=== PATIENT | female | born 1950 | race Caucasian/White ===

== ENCOUNTER → 2018-07-24 | Outpatient (CLI) | payer MEDICARE ==
--- NOTE | 2018-07-29 13:30 | MM ---
Reason for exam: screening (asymptomatic). Last mammogram was performed 1 year and 7 months ago. History: Patient is postmenopausal and is nulliparous. Family history of breast cancer in sister. Physical Findings: A clinical breast exam by your physician is recommended on an annual basis and results should be correlated with mammographic findings. MG 3D Screening Mammo W/Cad Bilateral CC and MLO view(s) were taken. Prior study comparison: December 25, 2016, bilateral MG 3d screening mammo w/cad. February 25, 2012, bilateral digital screening mammo w/CAD. There are scattered fibroglandular densities. Left pacemaker noted. Right intramammary lymph noded noted. ASSESSMENT: Benign, BI-RAD 2 RECOMMENDATION: Routine screening mammogram of both breasts in 1 year.
== END | disposition home or self-care (01) ==
LOC: RADMAMWWP 08:37
PROVIDERS: ATTEND Family Medicine
DX: Z12.31 Encounter for screening mammogram for malignant neoplasm of breast (principal)
CPT/HCPCS: 77063; 77067

== ENCOUNTER 2018-08-28 08:52 | Day surgery (SDC) | payer MEDICARE ==
[2018-08-25 09:03] VITALS: BMI 37.2
[~2018-08-28 08:52] MED LIST: SODIUM CHLORIDE 0.9% 1,000 ML IV SCH
[2018-08-28] MEDS ORDERED: PROPOFOL 10 MG/ML 20 ML VIAL IV ONE (10:24)
[2018-08-28] MEDS ORDERED: MIDAZOLAM 2 MG/2 ML VIAL ONE (10:24)
[2018-08-28] MEDS ORDERED: LIDOCAINE 1% INJ 10MG/ML (20 ML MDV) ONE (10:24)
[2018-08-28] MEDS ORDERED: BENZOCAINE SPRAY 1 CAN MUCOUS MEM ONE (10:25)
[2018-08-28 10:36] VITALS: TEMP 98
[2018-08-28] MEDS ORDERED: SODIUM CHLORIDE 0.9% 1,000 ML IV SCH (11:00)
[2018-08-28 11:04] VITALS: RESP 16
--- NOTE | 2018-08-28 11:14 | ECHOT ---
TRANSESOPHAGEAL ECHOCARDIOGRAM INDICATION: Evaluation of left atrial appendage. PROCEDURE: After explaining the procedure to the patient, its risks and the complications, blood pressure, heart rate, O2 saturation were monitored. The throat was sprayed with sprayed with Cetacaine. She received sedation per anesthesia department. The probe was introduced esophagus without difficulty. Images were obtained. Following that, the probe was removed. There was no immediate complication. FINDINGS: Left atrial size is mildly dilated. Left atrial appendage is normal. Left ventricular size is normal. There is the ejection fraction 50% to 55% The aortic valve is a tricuspid valve calcified with mild reduced opening. The mitral valve revealed mitral annuloplasty with mild thickening of the mitral valve leaflets. Tricuspid valve is normal. Pulmonic valve is normal. Descending thoracic aorta appears to be normal. Contrast bubble study revealed no shunting across the interatrial septum. Pacemaker wire was noted in the right ventricle. Doppler pulse wave and color Doppler obtained and revealed mild to moderate eccentric mitral regurgitation with mild to moderate tricuspid regurgitation and mild aortic regurgitation. There was no shunting by color Doppler study. CONCLUSION: 1. Dilated left atrium with normal appearance of left atrial appendage. 2. Normal left ventricular size with ejection fraction 50% to 55%. 3. Evidence of mitral valve annuloplasty with mild to moderate eccentric mitral regurgitation. 4. Mild to moderate tricuspid regurgitation with no evidence of pulmonary hypertension. 5. Mild aortic regurgitation with a calcified aortic valve with mild reduction in the opening. 6. A wire was noted in the right ventricle. 7. No pericardial effusion. MMODL / IJN: [id number] /
[2018-08-28 12:56] VITALS: BP 115/63; PULSE 62
--- NOTE | 2018-08-28 13:29 | CE ---
CARDIAC ELECTROPHYSIOLOGY REPORT CARDIOVERSION PROCEDURE NOTE: INDICATION: Atrial fibrillation. PROCEDURE: After explaining the procedure to the patient as well as risks and the complications after obtaining sedated state and performing transesophageal echocardiogram, a synchronized biphasic cardioversion using 200 joules was performed with buddhism of normal sinus rhythm. There was no immediate complication. JULIETA / ANILA: [id number] /
[2018-08-28] MEDS ORDERED: GABAPENTIN 100 MG CAP PO SCH (21:00)
[2018-08-28] MEDS ORDERED: ATORVASTATIN 20 MG TAB PO SCH (21:00)
[2018-08-28] MEDS ORDERED: METOPROLOL TARTRATE 25 MG TAB PO SCH (21:00)
[2018-08-29] MEDS ORDERED: RIVAROXABAN 15 MG TAB PO SCH (09:00)
[2018-08-29] MEDS ORDERED: TRIAMTERENE-HCTZ 37.5-25MG 1 EACH CAP PO SCH (09:00)
[2018-08-29] MEDS ORDERED: PARoxetine 20 MG TAB PO SCH (09:00)
== END 2018-08-28 12:40 | disposition home or self-care (01) ==
LOC: CATHCVL 08:52
PROVIDERS: ATTEND Internal Medicine Interventional Cardiology
DX: I48.1 Persistent atrial fibrillation (principal); I08.3 Combined rheumatic disorders of mitral, aortic and tricuspid valves; I10 Essential (primary) hypertension; E78.5 Hyperlipidemia, unspecified; G47.33 Obstructive sleep apnea (adult) (pediatric); I69.398 Other sequelae of cerebral infarction; M21.371 Foot drop, right foot; K21.9 Gastro-esophageal reflux disease without esophagitis; Z79.01 Long term (current) use of anticoagulants; Z88.0 Allergy status to penicillin; Z91.041 Radiographic dye allergy status; Z79.899 Other long term (current) drug therapy; Z87.442 Personal history of urinary calculi
CPT/HCPCS: 93312; 93320; 93325; 92960; J2250; J2001; J2704; 93005

== ENCOUNTER → 2018-09-24 | Outpatient (CLI) | payer MEDICARE ==
--- NOTE | 2018-09-24 14:28 | CONS ---
CONSULTATION DATE OF SERVICE: 09/24/2018 A 68-year-old lady who has been [facility] for obstructive sleep apnea-hypopnea syndrome. HISTORY OF PRESENT ILLNESS/SLEEP-WAKE EVALUATION: Patient has history of obstructive sleep apnea diagnosed about 20 years ago. Patient was on treatment with CPAP, but then around 5 years ago, she stopped using CPAP at that time, she lost some weight. Presently, her sleep schedule from 10:30 p.m. until 7 - 8 am. She has loud snoring during the sleep. She wakes up from sleep 2 times. She has awakenings from sleep with dry mouth, palpitations, heartburn, grinding teeth. In the morning, she wakes up tired, has difficulties to pay attention, falling asleep during the day. Coffeen Sleepiness Scale is 4. Usually, no problems with falling asleep. No TV in bedroom. Sometimes will fall asleep. She may see some kind of hallucinations of bugs. Otherwise, no history of sleep paralysis or cataplexy. PAST MEDICAL HISTORY: Positive for hypertension, stroke in 2014, TIA in 2017, kidney stones, mild depression. PAST SURGICAL HISTORY: Mitral valve repair 2014, permanent pacemaker insertion 2015, lap band surgery, partial hysterectomy. MEDICATIONS: Gabapentin, atorvastatin, metoprolol, triamterene, paroxetine, Xarelto. SOCIAL HISTORY: The patient quit smoking about 50 years ago. Alcohol consumption occasional. FAMILY HISTORY: Hypertension, breast CA. REVIEW OF SYSTEMS: Multiple awakenings from sleep, snoring, sometimes tiredness and sleepiness during the day. PHYSICAL EXAM: lady without distress. BP 122/84, HR 59, RR 20, height 5 foot 2 inches, weight 217 pounds. Body mass index 39.4, temperature 97.4, oxygen saturation at room air 98%. Oropharynx extremely low position of soft palate. Mallampati 4. Neck is 13- 1/2 inches in circumference. HEART: Soft systolic murmur on the upper part of the heart. ABDOMEN; Slightly obese. PHYSICAL EXAMINATION: GENERAL A pleasant patient without any distress. VITAL SIGNS BP@@ , HR@@ , RR@@, height @@ , weight @@ , BMI @@, temperature @@ , oxygen saturation at room air @@%. HEENT PERRLA, EOMI, evaluation of oropharynx showed tongue protrudes midline. Neck Supple, no JVD. Thyroid is not palpable. LUNGS Clear to percussion and to auscultation. Good air exchange. No wheezing or rhonchi. HEART S1, S2 regular. No murmurs, gallops, or rubs. ABDOMEN Slightly obese. EXTREMITIES No clubbing or cyanosis. 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 Cranial nerves 2 to 7 intact. There is no fasciculation or atrophy. noted. No focal deficits observed. IMPRESSION: 1. Snoring, multiple awakenings from sleep, extremely low position of soft palate, episodes of sleepiness during the day. 2. History of obstructive sleep apnea in the past. Obstructive sleep apnea-hypopnea syndrome. 3. Obesity, body mass index 39.4. 4. Hypertension. 5. Hyperlipidemia. 6. History of stroke in 2014. 7. History of transient ischemic attack in 2017. 8. Status post mitral valve repair in 2014 with the date about recent leaking from the wall according to patient. 9. Status post permanent pacemaker insertion 2015. 10.Status post total hysterectomy. 11.Status post lap band surgery. 12.History of depression. PLAN: 1. Polysomnography for evaluation of patient's breathing during sleep. 2. CPAP/BiPAP titration if sleep study confirms obstructive sleep apnea-hypopnea syndrome. 3. Preferable position during sleep on the side. 4. No driving if patient feels any sleepiness. 5. I will see patient for follow up visit to explain results of testing and following plan. Thank you very much for referring this patient for consultation. Sincerely, Nabil Koo MD, PhD, FAASM Diplomat of [employer] [employer] [employer] Machine [employer] Operator of [facility] [place] MMODL / JANISN: [id number] /
== END | disposition home or self-care (01) ==
LOC: SLEEP 11:46
PROVIDERS: ATTEND Internal Medicine
DX: G47.33 Obstructive sleep apnea (adult) (pediatric) (principal); E66.9 Obesity, unspecified; I10 Essential (primary) hypertension; E78.5 Hyperlipidemia, unspecified; Z68.39 Body mass index [BMI] 39.0-39.9, adult; Z87.891 Personal history of nicotine dependence; Z86.73 Personal history of transient ischemic attack (TIA), and cerebral infarction without residual deficits; Z86.59 Personal history of other mental and behavioral disorders; Z95.0 Presence of cardiac pacemaker; Z98.84 Bariatric surgery status; Z90.710 Acquired absence of both cervix and uterus; Z98.890 Other specified postprocedural states; Z79.01 Long term (current) use of anticoagulants; Z79.899 Other long term (current) drug therapy
CPT/HCPCS: 99211

== ENCOUNTER → 2018-11-18 | Outpatient (CLI) | payer MEDICARE ==
--- NOTE | 2018-11-18 16:26 | CT ---
EXAMINATION TYPE: CT abdomen pelvis wo con DATE OF EXAM: 11/18/2018 HISTORY: Left side flank pain CT DLP: 961.7 mGycm. Automated Exposure Control for Dose Reduction was Utilized. TECHNIQUE: CT scan of the abdomen and pelvis is performed without oral or IV contrast. COMPARISON: CT abdomen and pelvis from 2012 FINDINGS: Within the limitations of a non-contrast study, the following observations are made. LUNG BASES: Lingular scarring redemonstrated cardiomegaly with right-sided pacemaker is now seen.. LIVER/GB: No significant abnormality is appreciated. PANCREAS: No significant abnormality is seen. SPLEEN: No significant abnormality is seen. ADRENALS: No significant abnormality is seen. KIDNEYS: There are 2 adjacent upper pole right renal calculi axial image 46 measuring up to 6 mm in s ize. Simple appearing 5.0 cm cyst posteriorly mid to lower pole of left kidney axial image 54 is red emonstrated. Some cortical thinning of both kidneys is seen. Some scattered pelvic phleboliths. BOWEL: Lap band device just below diaphragm is redemonstrated. There is dilated visualized portion of distal esophagus redemonstrated. No suspicious small or large bowel dilatation. Suboptimal evaluatio n of bowel without enteric contrast. GENITAL ORGANS: Uterus surgically absent or markedly atrophic. LYMPH NODES: No greater than 1cm abdominal or pelvic lymph nodes are appreciated. OSSEOUS STRUCTURES: Bilateral pars defect with slight grade 1 anterolisthesis L5 on S1. Moderate to a dvanced disc space L5-S1 level. Mild compression fracture involving L1 vertebra is favored chronic as there is horizontal sclerosis.. Slight scoliotic curvature in the spine. Moderate narrowing of both hip joints with [id number] spurring. OTHER: Mild to moderate calcified plaque of the aorta extends into branch vessels. IMPRESSION: Right-sided renal calculi. No hydronephrosis or obstructing ureteral calculi bilaterally. No acute findings seen on noncontrast CT to cover patient's symptoms of left-sided flank pain. No romulo wel obstruction is present.
== END | disposition home or self-care (01) ==
LOC: RADCTMAIN 15:54
PROVIDERS: ATTEND Urology
DX: N20.0 Calculus of kidney (principal); Z88.1 Allergy status to other antibiotic agents; Z91.048 Other nonmedicinal substance allergy status; Z91.013 Allergy to seafood
CPT/HCPCS: 74176

== ENCOUNTER 2018-12-02 15:47 | Inpatient (IN) | payer MEDICARE ==
[2018-12-02] MEDS ORDERED: SODIUM CHLORIDE 0.9% 1,000 ML IV STA (17:37)
[2018-12-02 18:10] LABS: Color,Urine Red; RBC,Urine >182 /hpf (0-5); WBC,Urine >182 /hpf (0-5)
[2018-12-02 18:11] LABS: Appearance,Urine Bloody (Clear)
[2018-12-02 18:12] LABS: Basophils # (A) 0.1 k/uL (0-0.2); Basophils % (A) 1 %; Eosinophils # (A) 0.1 k/uL (0-0.7); Eosinophils % (A) 2 %; HCT 38.2 % (34.0-46.0); HGB 11.8 gm/dL (11.4-16.0); Lymphocytes # (A) 1.4 k/uL (1.0-4.8); Lymphocytes % (A) 20 %; MCH 28.5 pg (25.0-35.0); MCHC 30.9 g/dL (31.0-37.0); MCV 92.2 fL (80.0-100.0); Mean Platelet Volume 7.7; Monocytes # (A) 0.5 k/uL (0-1.0); Monocytes % (A) 6 %; Neutrophils # (A) 4.9 k/uL (1.3-7.7); Neutrophils % (A) 69 %; Platelet Count 202 k/uL (150-450); RBC 4.14 m/uL (3.80-5.40); RDW 15.5 % (11.5-15.5); WBC 7.1 k/uL (3.8-10.6)
--- NOTE | 2018-12-02 18:17 | ED ---
Dizziness HPI - General Chief Complaint: Dizziness Stated Complaint: dizziness Time Seen by Provider: 12/02/18 17:19 Source: patient Mode of arrival: wheelchair Limitations: no limitations - History of Present Illness Initial Comments: Patient is 68-year-old female presenting to the emergency department with a chief complaint of dizziness. Patient reports her symptoms started approximately 3 days ago. Patient reports that the room is spinning around her. Patient denies any lightheadedness. Patient reports the symptoms occurred after she stands up from bed. Patient reports she had episodes of dizziness throughout her whole life but has never been this severe. Patient reports she had a lithotripsy performed 1.5 weeks ago and the gross hematuria has not resolved since the procedure. Patient is concerned that the bleeding could be causing her symptoms. Patient denies any flank, back or abdominal pain. Patient denies any chest pain, chest tightness, shortness of breath. Patient denies exogenous steroid use. Patient denies recent prolonged periods of inactivity. Patient denies hemoptysis, nausea vomiting. - Related Data Home Medications Medication Instructions Recorded Confirmed Gabapentin [Neurontin] 100 mg PO BID 01/24/15 12/02/18 Acetaminophen/Diphenhydramine 1 tab PO HS PRN 11/04/15 12/02/18 [Tylenol PM Extra Strength] PARoxetine [Paxil] 20 mg PO DAILY 11/04/15 12/02/18 Rivaroxaban [Xarelto] 15 mg PO DAILY 08/25/18 12/02/18 Triamterene-Hctz 37.5-25Mg 1 tab PO DAILY 08/25/18 12/02/18 [Dyazide 37.5-25 Capsule] Atorvastatin Calcium [Lipitor] 20 mg PO HS 12/02/18 12/02/18 Metoprolol Tartrate [Lopressor] 50 mg PO BID 12/02/18 12/02/18 Allergies Allergy/AdvReac Type Severity Reaction Status Date / Time amoxicillin Allergy Rash/Hives Verified 12/02/18 17:31 Iodinated Contrast Media Allergy Rash/Hives Verified 12/02/18 17:31 [Iodinated Contrast Media - IV Dye] iodine Allergy Rash/Hives Verified 12/02/18 17:31 shellfish derived Allergy Rash/Hives Verified 12/02/18 17:31 Review of Systems ROS Statement: Those systems with pertinent positive or pertinent negative responses have been documented in the HPI. ROS Other: All systems not noted in ROS Statement are negative. Past Medical History Past Medical History: CVA/TIA, Hyperlipidemia, Hypertension, Osteoarthritis (OA), Sleep Apnea/CPAP/BIPAP Additional Past Medical History / Comment(s): Stroke 2014, HX OF RENAL CALCULUS, past hx. heart murmur, not using CPAP anymore since losing 140# after bariatric surg. See Dr. Hudson's H & P. TINNITUS History of Any Multi-Drug Resistant Organisms: None Reported Past Surgical History: Bariatric Surgery, Hysterectomy, Pacemaker, Tonsillectomy Additional Past Surgical History / Comment(s): 06/2014 mitral valve repair & growth removed from heart, LAP BAND 2009, LAPAROSCOPY FOR ENDOMETRIOSIS, KIDNEY STONE X2, TEEs. See Dr. Hudson's H & P. pacemaker in october 2015 Past Anesthesia/Blood Transfusion Reactions: No Reported Reaction Additional Past Anesthesia/Blood Transfusion Reaction / Comment(s): Woke up during Lithotripsy procedure once. Type of Cardiac Device: Permanent Pacemaker Device Placement Date:: October 2015 Past Psychological History: No Psychological Hx Reported Smoking Status: Former smoker Past Alcohol Use History: Occasional Past Drug Use History: None Reported - Past Family History Mother Family Medical History: Cancer Additional Family Medical History / Comment(s): OVARIAN/UTERINE Father Family Medical History: Cancer Additional Family Medical History / Comment(s): BRAIN General Exam Limitations: no limitations General appearance: alert, in no apparent distress Head exam: Present: atraumatic, normocephalic, normal inspection Eye exam: Present: normal appearance, PERRL, EOMI Pupils: Present: normal accommodation ENT exam: Present: normal exam, normal oropharynx, mucous membranes moist, TM's normal bilaterally, normal external ear exam Neck exam: Present: normal inspection, full ROM Respiratory exam: Present: normal lung sounds bilaterally Cardiovascular Exam: Present: regular rate, normal rhythm, systolic murmur Extremities exam: Present: normal inspection, full ROM Back exam: Present: normal inspection, full ROM. Absent: CVA tenderness (R), CVA tenderness (L) Neurological exam: Present: alert, oriented X3, CN II-XII intact, normal gait Psychiatric exam: Present: normal affect, normal mood Skin exam: Present: warm, intact, normal color Course Vital Signs 12/02/18 12/02/18 16:13 18:03 Temperature 98.3 F Pulse Rate 60 64 Respiratory 18 18 Rate Blood Pressure 96/68 99/48 O2 Sat by Pulse 99 100 Oximetry EKG Findings - EKG Comments: EKG Findings:: Electronic atrial pacemaker. Ventricular rate 69, IL interval, QRS duration 96, QT/QTc 412/441. Medical Decision Making - Medical Decision Making Patient is 68-year-old female presenting to emergency Department with a chief complaint of dizziness. Patient reports having a recent lithotripsy and has s marco not stop having gross hematuria. Patient is on blood thinners. UA is indicative of gross hematuria. I suspect this to be due to her blood thinner. Patient advised to keep drinking fluids. Patient reports her blood pressures typically low due to antihypertensive medication. Patient also reports increased dizziness over the past few days. Patient states the room is spinning around her. Patient has had mild episodes of vertigo throughout her whole life but has never been this bad. I performed a Sebring-Hallpike maneuver which increased her dizziness. Patient advised to go home and perform the Mady maneuver as conservative management for the dizziness. I suspect the patient to have episodes of vertigo. Patient does wear hearing aids. Patient does appear to have increased BUN and creatinine levels with decreased GFR however I suspect these to be due to the recent procedure. Patient given fluids. Reevaluation patient reports she feels better and is ready to go home. Patient will be discharged with meclizine. EKG shows electrical pacemaker. Strict return parameters were thoroughly discussed the patient was understanding and agreeable. Patient advised to avoid extraneous activity and optimize her oral fluid intake. Patient has an appointment with urology in 3 days. Case discussed with physician. - Lab Data Result diagrams: 12/02/18 18:02 12/02/18 18:02 Lab Results 12/02/18 12/02/18 12/02/18 Range/Units 17:48 18:02 18:02 WBC 7.1 (3.8-10.6) k/uL RBC 4.14 (3.80-5.40) m/uL Hgb 11.8 (11.4-16.0) gm/dL Hct 38.2 (34.0-46.0) % MCV 92.2 (80.0-100.0) fL MCH 28.5 (25.0-35.0) pg MCHC 30.9 L (31.0-37.0) g/dL RDW 15.5 (11.5-15.5) % Plt Count 202 (150-450) k/uL Neutrophils % 69 % Lymphocytes % 20 % Monocytes % 6 % Eosinophils % 2 % Basophils % 1 % Neutrophils # 4.9 (1.3-7.7) k/uL Lymphocytes # 1.4 (1.0-4.8) k/uL Monocytes # 0.5 (0-1.0) k/uL Eosinophils # 0.1 (0-0.7) k/uL Basophils # 0.1 (0-0.2) k/uL Sodium 137 (137-145) mmol/L Potassium 3.4 L (3.5-5.1) mmol/L Chloride 99 (98-107) mmol/L Carbon Dioxide 28 (22-30) mmol/L Anion Gap 10 mmol/L BUN 26 H (7-17) mg/dL Creatinine 1.33 H (0.52-1.04) mg/dL Est GFR (CKD-EPI)AfAm 47 (>60 ml/min/1.73 sqM) Est GFR (CKD-EPI)NonAf 41 (>60 ml/min/1.73 sqM) Glucose 103 H (74-99) mg/dL Calcium 9.7 (8.4-10.2) mg/dL Total Bilirubin 0.6 (0.2-1.3) mg/dL AST 28 (14-36) U/L ALT 15 (9-52) U/L Alkaline Phosphatase 86 (38-126) U/L Total Protein 6.4 (6.3-8.2) g/dL Albumin 3.9 (3.5-5.0) g/dL Urine Color Red Urine Appearance Bloody H (Clear) Urine RBC >182 H (0-5) /hpf Urine WBC >182 H (0-5) /hpf Disposition Clinical Impression: Dizziness, Gross hematuria Disposition: HOME SELF-CARE Condition: Stable Instructions (If sedation given, give patient instructions): Dizziness (ED) Additional Instructions: Please optimize your fluid intake. Avoid strenuous activity. Please follow up with primary care. Please return to emergency department if symptoms worsen. Is patient prescribed a controlled substance at d/c from ED?: No Referrals: Apolonia Barnett MD [Primary Care Provider] - 1-2 days Time of Disposition: 19:25
[2018-12-02 18:20] LABS: Albumin 3.9 g/dL (3.5-5.0); Calcium 9.7 mg/dL (8.4-10.2); Potassium 3.4 mmol/L (3.5-5.1); Total Bilirubin 0.6 mg/dL (0.2-1.3); Total Protein 6.4 g/dL (6.3-8.2)
[2018-12-02] MEDS ORDERED: SODIUM CHLORIDE 0.9% 1,000 ML IV ONE (20:02)
[2018-12-02] MEDS ORDERED: MECLIZINE 12.5 MG TAB PO STA (22:15)
[2018-12-02] MEDS ORDERED: NALOXONE 0.4 MG/ML 1 ML VIAL IV PRN (22:33)
[2018-12-02] MEDS: SODIUM CHLORIDE 0.9% 1,000 ML IV SCH (23:33)
[2018-12-03 08:12] LABS: Calcium 8.4 mg/dL (8.4-10.2); Potassium 3.6 mmol/L (3.5-5.1)
[2018-12-03 08:19] LABS: HCT 29.9 % (34.0-46.0); MCH 30.2 pg (25.0-35.0); MCHC 32.2 g/dL (31.0-37.0); MCV 93.7 fL (80.0-100.0); Mean Platelet Volume 8.2; Platelet Count 147 k/uL (150-450); RBC 3.19 m/uL (3.80-5.40); WBC 5.4 k/uL (3.8-10.6)
[2018-12-03 08:29] LABS: HGB 9.6 gm/dL (11.4-16.0)
[2018-12-03] MEDS ORDERED: BISACODYL 10 MG SUPP RECTAL PRN (12:16)
[2018-12-03] MEDS: SODIUM CHLORIDE 0.9% 1,000 ML IV SCH ×2 (12:17→17:32)
--- NOTE | 2018-12-03 13:40 | P.HPIM ---
History of Present Illness Patient is pleasant 68-year-old female came in with compensative dizziness found to have low blood pressure. Patient's antihypertensive medications are being held and patient is on IV fluids with improved dizziness. had is the recent lithotripsy about a week ago and since then patient was having hematuria. Patient hemoglobin is 9 has come down from 11 probably because of hematologic 3 affect along with hematuria. Patient's anticoagulation is being held urology will be canceled and patient will be monitored overnight patient hematuria resolved patient will be discharged. Patient denied any dysuria suprapubic pain fever doesn't have any leukocytosis patient denied any abdominal pain or CVA pain or tenderness Review of Systems REVIEW OF SYSTEMS: CONSTITUTIONAL: No fever, no malaise, no fatigue. HEENT: No recent visual problems or hearing problems. Denied any sore throat. CARDIOVASCULAR: No chest pain, orthopnea, PND, no palpitations, no syncope. PULMONARY: No shortness of breath, no cough, no hemoptysis. GASTROINTESTINAL: No diarrhea, no nausea, no vomiting, no abdominal pain. NEUROLOGICAL: No headaches, no weakness, no numbness. HEMATOLOGICAL: Denies any bleeding or petechiae. GENITOURINARY: As mentioned in HPI MUSCULOSKELETAL/RHEUMATOLOGICAL: Denies any joint pain, swelling, or any muscle pain. ENDOCRINE: Denies any polyuria or polydipsia. The rest of the 14-point review of systems is negative. Past Medical History Past Medical History: CVA/TIA, Hyperlipidemia, Hypertension, Osteoarthritis (OA), Sleep Apnea/CPAP/BIPAP Additional Past Medical History / Comment(s): Stroke 2014, HX OF RENAL CALCULUS, past hx. heart murmur, TINNITUS, 11/28/2018 Renal stone removal History of Any Multi-Drug Resistant Organisms: None Reported Past Surgical History: Bariatric Surgery, Hysterectomy, Pacemaker, Tonsillectomy Additional Past Surgical History / Comment(s): 06/2014 mitral valve repair & growth removed from heart, LAP BAND 2009, LAPAROSCOPY FOR ENDOMETRIOSIS, KIDNEY STONE X2, TEEs. pacemaker in october 2015, 11/28/2018 Renal stone removal Past Anesthesia/Blood Transfusion Reactions: No Reported Reaction Additional Past Anesthesia/Blood Transfusion Reaction / Comment(s): Woke up during Lithotripsy procedure once. Type of Cardiac Device: Permanent Pacemaker Device Placement Date:: October 2015 Smoking Status: Former smoker - Past Family History Mother Family Medical History: Cancer Additional Family Medical History / Comment(s): OVARIAN/UTERINE Father Family Medical History: Cancer Additional Family Medical History / Comment(s): BRAIN Medications and Allergies Home Medications Medication Instructions Recorded Confirmed Type Gabapentin [Neurontin] 100 mg PO BID 01/24/15 12/02/18 History Acetaminophen/Diphenhydramine 1 tab PO HS PRN 11/04/15 12/02/18 History [Tylenol PM Extra Strength] PARoxetine [Paxil] 20 mg PO DAILY 11/04/15 12/02/18 History Rivaroxaban [Xarelto] 15 mg PO DAILY 08/25/18 12/02/18 History Triamterene-Hctz 37.5-25Mg 1 tab PO DAILY 08/25/18 12/02/18 History [Dyazide 37.5-25 Capsule] Atorvastatin Calcium [Lipitor] 20 mg PO HS 12/02/18 12/02/18 History Metoprolol Tartrate [Lopressor] 50 mg PO BID 12/02/18 12/02/18 History Allergies Allergy/AdvReac Type Severity Reaction Status Date / Time amoxicillin Allergy Rash/Hives Verified 12/02/18 17:31 Iodinated Contrast Media Allergy Rash/Hives Verified 12/02/18 17:31 [Iodinated Contrast Media - IV Dye] iodine Allergy Rash/Hives Verified 12/02/18 17:31 shellfish derived Allergy Rash/Hives Verified 12/02/18 17:31 Physical Exam Vitals: Vital Signs Temp Pulse Pulse Pulse Pulse Pulse Resp 12/03/18 12:41 97.6 F 65 70 67 62 18 12/03/18 12:18 61 18 12/03/18 11:02 97.3 F L 61 18 12/03/18 10:56 91 18 12/03/18 10:45 97.3 F L 61 18 12/03/18 09:48 62 18 12/03/18 09:00 60 18 12/03/18 08:00 78 18 12/03/18 06:19 70 19 12/03/18 05:00 67 17 12/03/18 03:54 68 18 12/03/18 01:18 62 17 12/03/18 00:00 62 18 12/02/18 23:24 63 18 12/02/18 23:00 64 18 12/02/18 22:45 97.9 F 65 18 12/02/18 22:15 62 18 12/02/18 22:00 68 18 12/02/18 21:45 65 18 12/02/18 21:00 66 18 12/02/18 20:30 96 18 12/02/18 20:01 97.6 F 69 16 12/02/18 19:30 65 18 12/02/18 18:03 64 18 12/02/18 16:13 98.3 F 60 18 BP BP BP BP BP Pulse Ox 12/03/18 12:41 109/62 114/68 117/55 100 12/03/18 12:18 12/03/18 11:02 106/55 100 12/03/18 10:56 12/03/18 10:45 106/55 100 12/03/18 09:48 108/67 99 12/03/18 09:00 100/70 100 12/03/18 08:00 92/62 100 12/03/18 06:19 90/64 99 12/03/18 05:00 97/46 98 12/03/18 03:54 96/50 98 12/03/18 01:18 100/69 98 12/03/18 00:00 97/69 99 12/02/18 23:24 91/53 99 12/02/18 23:00 102/77 97 12/02/18 22:45 91/49 97 12/02/18 22:15 96/60 99 12/02/18 22:00 89/55 97 12/02/18 21:45 82/67 98 12/02/18 21:00 84/45 98 12/02/18 20:30 135/66 98 12/02/18 20:01 93/62 98 12/02/18 19:30 99/61 98 12/02/18 18:03 99/48 100 12/02/18 16:13 96/68 99 Intake and Output 12/02/18 12/03/18 12/03/18 22:59 06:59 14:59 Other: Voiding Method Toilet # Voids 1 Weight 96.162 kg PHYSICAL EXAMINATION: GENERAL: The patient is alert and oriented x3, not in any acute distress. Well developed, well nourished. HEENT: Pupils are round and equally reacting to light. EOMI. No scleral icterus. No conjunctival pallor. Normocephalic, atraumatic. No pharyngeal erythema. No thyromegaly. CARDIOVASCULAR: S1 and S2 present. No murmurs, rubs, or gallops. PULMONARY: Chest is clear to auscultation, no wheezing or crackles. ABDOMEN: Soft, nontender, nondistended, normoactive bowel sounds. No palpable organomegaly. MUSCULOSKELETAL: No joint swelling or deformity. EXTREMITIES: No cyanosis, clubbing, or pedal edema. NEUROLOGICAL: Gross neurological examination did not reveal any focal deficits. SKIN: No rashes. Results CBC & Chem 7: 12/03/18 06:54 12/03/18 06:54 Labs: Abnormal Lab Results - Last 24 Hours (Table) 12/02/18 12/02/18 12/02/18 Range/Units 17:48 18:02 18:02 RBC (3.80-5.40) m/uL Hgb (11.4-16.0) gm/dL Hct (34.0-46.0) % MCHC 30.9 L (31.0-37.0) g/dL RDW (11.5-15.5) % Plt Count (150-450) k/uL Potassium 3.4 L (3.5-5.1) mmol/L Chloride (98-107) mmol/L BUN 26 H (7-17) mg/dL Creatinine 1.33 H (0.52-1.04) mg/dL Glucose 103 H (74-99) mg/dL Urine Appearance Bloody H (Clear) Urine RBC >182 H (0-5) /hpf Urine WBC >182 H (0-5) /hpf 12/03/18 12/03/18 Range/Units 06:54 06:54 RBC 3.19 L (3.80-5.40) m/uL Hgb 9.6 L D (11.4-16.0) gm/dL Hct 29.9 L (34.0-46.0) % MCHC (31.0-37.0) g/dL RDW 16.0 H (11.5-15.5) % Plt Count 147 L (150-450) k/uL Potassium (3.5-5.1) mmol/L Chloride 108 H (98-107) mmol/L BUN 20 H (7-17) mg/dL Creatinine (0.52-1.04) mg/dL Glucose (74-99) mg/dL Urine Appearance (Clear) Urine RBC (0-5) /hpf Urine WBC (0-5) /hpf Thrombosis Risk Factor Assmnt - Choose All That Apply Each Factor Represents 1 point: Obesity (BMI >25) Other Risk Factors: Yes Each Risk Factor Represents 2 Points: Age 61-74 years Other congenital or acquired thrombophilia - If yes, enter type in comment: No Thrombosis Risk Factor Assessment Total Risk Factor Score: 3 Thrombosis Risk Factor Assessment Level: Moderate Risk Assessment and Plan Plan: -Dizziness secondary to hypotension from acute blood loss from hematuria along with dehydration aneurysm medications will be held patient will be continued on IV fluids if needed. We will transfuse her although patient doesn't appear to be requiring transfusion at this time because of hematuria and urology consulted. -Atrial fibrillation presently rate controlled patient had a mitral valve repair no valve replacement her coagulation is being held because of hematuria and dizziness and hypotension. Patient is presently rate controlled continue with rate control medications -Acute renal failure improved with IV fluids, patient had prerenal azotemia from intravascular depletion -Mitral valve repair -Hyperlipidemia -Hypertension Obstructive sleep apnea
[2018-12-03] MEDS ORDERED: MAGNESIUM HYDROXIDE 2,400 MG/10 ML CUP PO PRN (13:54)
--- NOTE | 2018-12-03 16:21 | P.GSCN ---
History of Present Illness Consult date: 12/03/18 Reason for Consult: Gross hematuria History of present illness: The patient is a 68-year-old female admitted through the emergency room last nig for evaluation of dizziness and gross hematuria. The patient had undergone outpatient right ureteroscopy with lithotripsy for treatment of calculi in the upper pole of the right kidney on 11/28. A 4.8-Hungarian double-J catheter was left following the procedure by Dr Rivera. The patient was scheduled to come to our office on 12/04 for removal of the double-J catheter. The patient has had gross hematuria ever since the procedure. She has been taking Xaralto due to a history of atrial fibrillation. She says that she was passing small clots and that this persisted despite increased fluids. She had right flank pain prior to the lithotripsy but says that this has resolved. When seen in the emergency room yesterday evening her hemoglobin was 11.8. BUN/creatinine were 26/1.33. Patient was hydrated overnight. Her hemoglobin this morning is 9.6. BUN/creatinine are 20/0.83. Review of Systems - Constitutional Denies chills, Denies fever - Gastrointestinal Reports constipation, Denies abdominal pain, Denies nausea, Denies vomiting - Genitourinary Genitourinary: Reports as per HPI Past Medical History Past Medical History: CVA/TIA, Hyperlipidemia, Hypertension, Osteoarthritis (OA), Sleep Apnea/CPAP/BIPAP Additional Past Medical History / Comment(s): Stroke 2014, HX OF RENAL CALCULUS, past hx. heart murmur, TINNITUS, 11/28/2018 Renal stone removal History of Any Multi-Drug Resistant Organisms: None Reported Past Surgical History: Bariatric Surgery, Hysterectomy, Pacemaker, Tonsillectomy Additional Past Surgical History / Comment(s): 06/2014 mitral valve repair & growth removed from heart, LAP BAND 2009, LAPAROSCOPY FOR ENDOMETRIOSIS, KIDNEY STONE X2, TEEs. pacemaker in october 2015, 11/28/2018 right ureteroscopy with lithotripsy and placement of right double-J catheter Past Anesthesia/Blood Transfusion Reactions: No Reported Reaction Additional Past Anesthesia/Blood Transfusion Reaction / Comm: Woke up during Lithotripsy procedure once. Type of Cardiac Device: Permanent Pacemaker Device Placement Date:: October 2015 Smoking Status: Former smoker - Past Family History Mother Family Medical History: Cancer Additional Family Medical History / Comment(s): OVARIAN/UTERINE Father Family Medical History: Cancer Additional Family Medical History / Comment(s): BRAIN Medications and Allergies Home Medications Medication Instructions Recorded Confirmed Type Gabapentin [Neurontin] 100 mg PO BID 01/24/15 12/02/18 History Acetaminophen/Diphenhydramine 1 tab PO HS PRN 11/04/15 12/02/18 History [Tylenol PM Extra Strength] PARoxetine [Paxil] 20 mg PO DAILY 11/04/15 12/02/18 History Rivaroxaban [Xarelto] 15 mg PO DAILY 08/25/18 12/02/18 History Triamterene-Hctz 37.5-25Mg 1 tab PO DAILY 08/25/18 12/02/18 History [Dyazide 37.5-25 Capsule] Atorvastatin Calcium [Lipitor] 20 mg PO HS 12/02/18 12/02/18 History Metoprolol Tartrate [Lopressor] 50 mg PO BID 12/02/18 12/02/18 History Allergies Allergy/AdvReac Type Severity Reaction Status Date / Time amoxicillin Allergy Rash/Hives Verified 12/02/18 17:31 Iodinated Contrast Media Allergy Rash/Hives Verified 12/02/18 17:31 [Iodinated Contrast Media - IV Dye] iodine Allergy Rash/Hives Verified 12/02/18 17:31 shellfish derived Allergy Rash/Hives Verified 12/02/18 17:31 Surgical - Exam Vital Signs Temp Pulse Resp BP Pulse Ox 98.3 F 60 18 96/68 99 12/02/18 16:13 12/02/18 16:13 12/02/18 16:13 12/02/18 16:13 12/02/18 16:13 - General well developed, well nourished, no distress, obese - ENT no hearing loss - Respiratory normal respiratory effort - Abdomen Abdomen: soft, non tender, no organomegaly Results - Labs 12/03/18 06:54 12/03/18 06:54 Abnormal Lab Results - Last 24 Hours (Table) 12/02/18 12/02/18 12/02/18 Range/Units 17:48 18:02 18:02 RBC (3.80-5.40) m/uL Hgb (11.4-16.0) gm/dL Hct (34.0-46.0) % MCHC 30.9 L (31.0-37.0) g/dL RDW (11.5-15.5) % Plt Count (150-450) k/uL Potassium 3.4 L (3.5-5.1) mmol/L Chloride (98-107) mmol/L BUN 26 H (7-17) mg/dL Creatinine 1.33 H (0.52-1.04) mg/dL Glucose 103 H (74-99) mg/dL Urine Appearance Bloody H (Clear) Urine RBC >182 H (0-5) /hpf Urine WBC >182 H (0-5) /hpf 12/03/18 12/03/18 Range/Units 06:54 06:54 RBC 3.19 L (3.80-5.40) m/uL Hgb 9.6 L D (11.4-16.0) gm/dL Hct 29.9 L (34.0-46.0) % MCHC (31.0-37.0) g/dL RDW 16.0 H (11.5-15.5) % Plt Count 147 L (150-450) k/uL Potassium (3.5-5.1) mmol/L Chloride 108 H (98-107) mmol/L BUN 20 H (7-17) mg/dL Creatinine (0.52-1.04) mg/dL Glucose (74-99) mg/dL Urine Appearance (Clear) Urine RBC (0-5) /hpf Urine WBC (0-5) /hpf Diabetes panel 12/02/18 12/03/18 Range/Units 18:02 06:54 Sodium 137 139 (137-145) mmol/L Potassium 3.4 L 3.6 (3.5-5.1) mmol/L Chloride 99 108 H (98-107) mmol/L Carbon Dioxide 28 24 (22-30) mmol/L BUN 26 H 20 H (7-17) mg/dL Creatinine 1.33 H 0.83 (0.52-1.04) mg/dL Glucose 103 H 88 (74-99) mg/dL Calcium 9.7 8.4 (8.4-10.2) mg/dL AST 28 (14-36) U/L ALT 15 (9-52) U/L Alkaline Phosphatase 86 (38-126) U/L Total Protein 6.4 (6.3-8.2) g/dL Albumin 3.9 (3.5-5.0) g/dL Calcium panel 12/02/18 12/03/18 Range/Units 18:02 06:54 Calcium 9.7 8.4 (8.4-10.2) mg/dL Albumin 3.9 (3.5-5.0) g/dL Pituitary panel 12/02/18 12/03/18 Range/Units 18:02 06:54 Sodium 137 139 (137-145) mmol/L Potassium 3.4 L 3.6 (3.5-5.1) mmol/L Chloride 99 108 H (98-107) mmol/L Carbon Dioxide 28 24 (22-30) mmol/L BUN 26 H 20 H (7-17) mg/dL Creatinine 1.33 H 0.83 (0.52-1.04) mg/dL Glucose 103 H 88 (74-99) mg/dL Calcium 9.7 8.4 (8.4-10.2) mg/dL Adrenal panel 12/02/18 12/03/18 Range/Units 18:02 06:54 Sodium 137 139 (137-145) mmol/L Potassium 3.4 L 3.6 (3.5-5.1) mmol/L Chloride 99 108 H (98-107) mmol/L Carbon Dioxide 28 24 (22-30) mmol/L BUN 26 H 20 H (7-17) mg/dL Creatinine 1.33 H 0.83 (0.52-1.04) mg/dL Glucose 103 H 88 (74-99) mg/dL Calcium 9.7 8.4 (8.4-10.2) mg/dL Total Bilirubin 0.6 (0.2-1.3) mg/dL AST 28 (14-36) U/L ALT 15 (9-52) U/L Alkaline Phosphatase 86 (38-126) U/L Total Protein 6.4 (6.3-8.2) g/dL Albumin 3.9 (3.5-5.0) g/dL Assessment and Plan (1) Gross hematuria Narrative/Plan: The patient's gross hematuria is most likely related to a combination of the recent ureteroscopy with lithotripsy and placement of a double-J catheter and her continued use of Xaralto. These are also has been held and if her urine clears she could be discharged in the morning. She may still be able to have the double-J catheter removed later in the day in our office. Current Visit: Yes Status: Acute Code(s): R31.0 - GROSS HEMATURIA SNOMED Code(s): 687100125
[2018-12-03 21:48] VITALS: RESP 16
[2018-12-04] MEDS: SODIUM CHLORIDE 0.9% 1,000 ML IV SCH (05:20)
[2018-12-04 06:46] LABS: Anisocytosis Slight; Basophils % (A) 0 %; Eosinophils # (A) 0.1 k/uL (0-0.7); Eosinophils % (A) 2 %; HCT 28.6 % (34.0-46.0); HGB 9.5 gm/dL (11.4-16.0); Lymphocytes % (A) 21 %; MCH 30.8 pg (25.0-35.0); MCHC 33.3 g/dL (31.0-37.0); MCV 92.7 fL (80.0-100.0); Mean Platelet Volume 8.1; Monocytes # (A) 0.4 k/uL (0-1.0); Monocytes % (A) 8 %; Neutrophils % (A) 67 %; Platelet Count 153 k/uL (150-450); RBC 3.08 m/uL (3.80-5.40); RDW 16.8 % (11.5-15.5); WBC 4.6 k/uL (3.8-10.6)
[2018-12-04 07:05] LABS: ALT 17 U/L (9-52); AST 21 U/L (14-36); African American GFR (CKD) >90 (>60 ml/min/1.73 sqM); Albumin 2.7 g/dL (3.5-5.0); Alkaline Phosphatase 53 U/L (38-126); Anion Gap 4 mmol/L; Blood Urea Nitrogen 14 mg/dL (7-17); Calcium 8.7 mg/dL (8.4-10.2); Carbon Dioxide 26 mmol/L (22-30); Chloride 109 mmol/L (98-107); Glucose 96 mg/dL (74-99); Potassium 3.1 mmol/L (3.5-5.1); Sodium 139 mmol/L (137-145); Total Bilirubin 0.4 mg/dL (0.2-1.3); Total Protein 4.8 g/dL (6.3-8.2)
[2018-12-04 12:32] VITALS: BP 119/61; PULSE 65; TEMP 97.7
[2018-12-04] MEDS: POTASSIUM CHLORIDE ER 20 MEQ TAB.ER PO SCH ×2 (12:56→14:30)
--- NOTE | 2018-12-04 14:00 | P.DS ---
Providers Date of admission: 12/02/18 22:33 Expected date of discharge: 12/04/18 Attending physician: Neel Parrish Consults: 12/03/18 10:54 Consult Physician Routine Consulting Provider: Reddy Candelaria Consult Reason/Comments: Lithotripsy 11/28/2018-Hematuria Do you want consulting provider notified?: Yes [facility] Course: Final diagnosis Dizziness secondary to hypotension from acute blood loss from hematuria along with dehydration Atrial fibrillation presently rate controlled Acute renal failure: prerenal azotemia from intravascular depletion Mitral valve repair Hyperlipidemia Hypertension Obstructive sleep apnea Discharge disposition Patient is being discharged in a stable condition with guarded prognosis to home and will follow-up with Dr. Rivera in the office as scheduled tomorrow 1 PM for J-tube removal. Total time taken is 35 minutes. History of present illness This is a 68-year-old female who was recently admitted for dizziness, low blood pressure, and hematuria and is being closely monitored. Patient underwent a right ureteral lithotripsy for calculi on November 28 and had a J-tube placed by Dr. Rivera and was having some increase hematuria. Patient states that she was feeling dizzy and lightheaded and concerned and came in. Currently patient's condition is stable with much improvement. Will continue to hold blood pressure medications until follow-up with primary care provider as her blood pressure readings continue to be 90s systolic during hospitalization. Will also hold Xarelto until her J-tube removal tomorrow and follow-up with primary care provider. Other medications were resumed upon discharge. Patient will need repeat labs in 2-3 days to monitor hemoglobin as well as potassium as her potassium was 3.1 today and replaced. Patient denies any chest pain, shortness of breath, or palpitations at this time. Patient denies any nausea or vomiting and has been tolerating diet. Patient is still experiencing hematuria and discussed with patient today about watching for signs and symptoms that may need immediate medical attention. She verbalized understanding and agrees with the treatment plan. Guarded prognosis. On exam vital signs are stable. Blood pressure is 119/61, pulse is 65, respirations are 16, temp is 97.7F, oxygen saturation is 96% on room air. S1 and S2 are heard. Respiratory system shows clear to auscultation. Abdomen is soft, obese, nontender. Nervous system shows no focal deficits and gait is steady. Please refer to medication reconciliation sheet for a list of medications. Patient Condition at Discharge: Stable Plan - Discharge Summary Discharge Rx Participant: Yes New Discharge Prescriptions: Continue Gabapentin [Neurontin] 100 mg PO BID PARoxetine [Paxil] 20 mg PO DAILY Acetaminophen/Diphenhydramine [Tylenol PM Extra Strength] 1 tab PO HS PRN PRN Reason: Insomnia Metoprolol Tartrate [Lopressor] 50 mg PO BID Atorvastatin Calcium [Lipitor] 20 mg PO HS Discontinued Rivaroxaban [Xarelto] 15 mg PO DAILY Triamterene-Hctz 37.5-25Mg [Dyazide 37.5-25 Capsule] 1 tab PO DAILY Discharge Medication List Gabapentin [Neurontin] 100 mg PO BID 01/24/15 [History] Acetaminophen/Diphenhydramine [Tylenol PM Extra Strength] 1 tab PO HS PRN 11/04/15 [History] PARoxetine [Paxil] 20 mg PO DAILY 11/04/15 [History] Atorvastatin Calcium [Lipitor] 20 mg PO HS 12/02/18 [History] Metoprolol Tartrate [Lopressor] 50 mg PO BID 12/02/18 [History] Follow up Appointment(s)/Referral(s): Pipo Rivera MD [STAFF PHYSICIAN] - 12/05/18 1:40 pm (Saturday ) Apolonia Barnett MD [Primary Care Provider] - 12/10/18 10:30 am (With Dr. Barnett- Saturday) Ambulatory/Diagnostic Orders: Basic Metabolic Panel [LAB.AMB] Time Frame: 2 Days, Location: None Selected Complete Blood Count w/diff [LAB.AMB] Time Frame: 2 Days, Location: None Selected Patient Instructions/Handouts: Hematuria (GEN) Activity/Diet/Wound Care/Special Instructions: Please optimize your fluid intake. Avoid strenuous activity. Please follow up with primary care. Please return to emergency department if symptoms worsen. Continue to hold xarelto and blood pressure medication until stent removal and following up with primary care provider keep a diary of blood pressures Follow-up with Dr. Rivera as scheduled tomorrow Repeat labs in 2-3 days Discharge Disposition: HOME SELF-CARE
[2018-12-04] MEDS ORDERED: POTASSIUM CHLORIDE ER 20 MEQ TAB.ER PO ONE (16:00)
== END 2018-12-04 15:51 | disposition home or self-care (01) | DRG 641 ==
LOC: EC 15:47 → 3SCARD 22:33
PROVIDERS: ADMIT Hospitalist; ATTEND Hospitalist
DX: E86.0 Dehydration (principal); D62 Acute posthemorrhagic anemia; N17.9 Acute kidney failure, unspecified; R31.0 Gross hematuria; E66.9 Obesity, unspecified; Z98.84 Bariatric surgery status; E78.5 Hyperlipidemia, unspecified; G47.33 Obstructive sleep apnea (adult) (pediatric); Z99.89 Dependence on other enabling machines and devices; I10 Essential (primary) hypertension; I48.91 Unspecified atrial fibrillation; Z79.01 Long term (current) use of anticoagulants; Z79.899 Other long term (current) drug therapy; Z86.73 Personal history of transient ischemic attack (TIA), and cerebral infarction without residual deficits; Z87.442 Personal history of urinary calculi; Z87.891 Personal history of nicotine dependence; Z90.710 Acquired absence of both cervix and uterus; Z95.0 Presence of cardiac pacemaker; I95.9 Hypotension, unspecified; Z80.49 Family history of malignant neoplasm of other genital organs; Z80.8 Family history of malignant neoplasm of other organs or systems; M19.90 Unspecified osteoarthritis, unspecified site
CPT/HCPCS: 36415; 80048; 80053; 81001; 85025; 85027; 93005; 94760; 96360; 96361; 99285

== ENCOUNTER → 2018-12-06 | Outpatient (CLI) | payer MEDICARE ==
[2018-12-06 08:54] LABS: Basophils % (A) 0 %; Eosinophils # (A) 0.1 k/uL (0-0.7); Eosinophils % (A) 1 %; HCT 31.5 % (34.0-46.0); HGB 10.1 gm/dL (11.4-16.0); Hypochromasia Slight; Lymphocytes # (A) 0.7 k/uL (1.0-4.8); Lymphocytes % (A) 8 %; MCH 30.2 pg (25.0-35.0); MCHC 32.1 g/dL (31.0-37.0); MCV 94.3 fL (80.0-100.0); Mean Platelet Volume 7.8; Monocytes # (A) 0.5 k/uL (0-1.0); Monocytes % (A) 6 %; Neutrophils # (A) 6.3 k/uL (1.3-7.7); Neutrophils % (A) 82 %; Platelet Count 209 k/uL (150-450); RBC 3.34 m/uL (3.80-5.40); RDW 15.2 % (11.5-15.5); WBC 7.7 k/uL (3.8-10.6)
[2018-12-06 16:58] LABS: African American GFR (CKD) 75.6 (60.0-200.0); Anion Gap 9.5 mmol/L (4.00-12.00); BUN/Creat Ratio 17.78 Ratio (12.00-20.00); Calcium 9.2 mg/dL (8.7-10.3); Carbon Dioxide 24.5 mmol/L (21.6-31.8); Potassium 4.3 mmol/L (3.5-5.5)
== END | disposition home or self-care (01) ==
LOC: LABWHC1 08:16
PROVIDERS: ATTEND Registered Nurse
DX: D64.9 Anemia, unspecified (principal); R31.9 Hematuria, unspecified; E87.6 Hypokalemia
CPT/HCPCS: 36415; 80048; 85025

== ENCOUNTER → 2018-12-30 | Outpatient (CLI) | payer MEDICARE ==
[2018-12-30 13:04] LABS: HCT 34.4 % (34.0-46.0); HGB 10.7 gm/dL (11.4-16.0); Hypochromasia Marked; MCH 28.2 pg (25.0-35.0); MCHC 31.2 g/dL (31.0-37.0); MCV 90.4 fL (80.0-100.0); Mean Platelet Volume 7.5; Platelet Count 300 k/uL (150-450); Poikilocytosis Slight; RBC 3.81 m/uL (3.80-5.40); RDW 14.7 % (11.5-15.5); WBC 6.6 k/uL (3.8-10.6)
[2018-12-30 20:20] LABS: African American GFR (CKD) 87.2 (60.0-200.0); Anion Gap 9.9 mmol/L (4.00-12.00); BUN/Creat Ratio 21.25 Ratio (12.00-20.00); Calcium 9.4 mg/dL (8.7-10.3); Carbon Dioxide 24.1 mmol/L (21.6-31.8); Potassium 4.3 mmol/L (3.5-5.5)
== END | disposition home or self-care (01) ==
LOC: LABWHC1 11:07
PROVIDERS: ATTEND Family Medicine
DX: I48.19 Other persistent atrial fibrillation (principal); N18.9 Chronic kidney disease, unspecified
CPT/HCPCS: 36415; 80048; 85027

== ENCOUNTER → 2019-02-13 | Outpatient (CLI) | payer MEDICARE | END | disposition home or self-care (01) | LOC: CPPFTMAIN 10:18 | PROVIDERS: ATTEND Internal Medicine Interventional Cardiology | DX: J44.9 Chronic obstructive pulmonary disease, unspecified (principal); R94.2 Abnormal results of pulmonary function studies | CPT/HCPCS: 94060; 94726; 94729 ==

== ENCOUNTER → 2019-04-03 | Outpatient (CLI) | payer MEDICARE ==
[2019-04-03 19:46] LABS: African American GFR (CKD) 75.6 (60.0-200.0); Anion Gap 11.5 mmol/L (4.00-12.00); BUN/Creat Ratio 25.56 Ratio (12.00-20.00); Calcium 9.9 mg/dL (8.7-10.3); Carbon Dioxide 27.5 mmol/L (21.6-31.8); Non-African American GFR(CKD) 65.2 (60.0-200.0); Potassium 3.4 mmol/L (3.5-5.5)
== END | disposition home or self-care (01) ==
LOC: LABWHC1 11:34
PROVIDERS: ATTEND Nurse Practitioner Adult Health
DX: I10 Essential (primary) hypertension (principal)
CPT/HCPCS: 36415; 80048

== ENCOUNTER → 2019-04-10 | Outpatient (CLI) | payer MEDICARE ==
--- NOTE | 2019-04-12 22:11 | CT ---
EXAMINATION TYPE: High resolution CT chest DATE OF EXAM: 04/10/2019 COMPARISON: None HISTORY: 68-year-old female SOB x3 months TECHNIQUE: Contiguous high resolution axial scanning of the chest utilizing 1 mm slice thickness and 1 cm gap per HRCT protocol without IV contrast. Both prone and supine imaging was performed. CT DLP: 910.9 mGycm Automated exposure control for dose reduction was used. FINDINGS: Left anterior chest wall pacemaker generator with right atrial and right ventricular leads. A lap ban d device is in place. Median sternotomy wires with annuloplasty ring. Heart borderline to mildly enlarged without pericardial effusion. Aorta normal caliber with conventional branching anatomy. Numerous nonenlarged mediastinal lymph nodes are present, largest is mildly enlarged in the precarina l region measuring 1.2 cm, probably reactive/post inflammatory. Large caliber to the main right and left pulmonary arteries and 2.7 and 3.1 cm, respectively, suggest ing underlying pulmonary arterial hypertension. No honeycombing. No cystic change. No thickening of the bronchovascular bundles are perilymphatic nod ularity. Subpleural calcified granuloma posterior right lower lobe. Mild diffuse bronchial wall thickening. Some mild patchy inferior lingular opacity. No bronchiectasis or dominant groundglass. There is a small hiatal hernia. LAP-BAND device demonstrated. Bones: Endplate spondylosis mid to lower thoracic spine. IMPRESSION: 1. BORDERLINE TO MILD CARDIOMEGALY. FINDINGS SUGGEST UNDERLYING PULMONARY HYPERTENSION. 2. MILD DIFFUSE BRONCHIAL WALL THICKENING COULD REPRESENT BRONCHITIS OR CHRONIC ASTHMA. 3. SOME PATCHY INFERIOR LINGULAR DENSITY COULD REPRESENT ATELECTASIS OR SCARRING OR MILD INFILTRATE. CORRELATE FOR ANY INFECTIOUS SIGNS/SYMPTOMS TO EXCLUDE AN EARLY PNEUMONIA. 4. OTHERWISE, NO SPECIFIC INJURY CT FINDINGS OF INTERSTITIAL FIBROSIS OR INTERSTITIAL PNEUMONITIS. 5. SMALL HIATAL HERNIA. LAP BAND DEVICE IN PLACE.
== END | disposition home or self-care (01) ==
LOC: RADCTMAIN 17:22
PROVIDERS: ATTEND Internal Medicine Critical Care Medicine
DX: J98.09 Other diseases of bronchus, not elsewhere classified (principal); K44.9 Diaphragmatic hernia without obstruction or gangrene; I51.7 Cardiomegaly
CPT/HCPCS: 71250

== ENCOUNTER 2019-04-20 06:17 | Day surgery (SDC) | payer MEDICARE ==
[2019-04-17 08:31] VITALS: BMI 39.9
[2019-04-20] MEDS ORDERED: SODIUM CHLORIDE 0.9% 1,000 ML IV SCH ×2 (06:29→08:00)
[2019-04-20] MEDS ORDERED: SODIUM CHLORIDE 0.9% 500 ML 500 ML IV ONE (07:03)
[2019-04-20] MEDS ORDERED: PROPOFOL 10 MG/ML 20 ML VIAL IV ONE (07:19)
[2019-04-20] MEDS ORDERED: LIDOCAINE 1% INJ 10MG/ML (20 ML MDV) ONE (07:19)
[2019-04-20] MEDS ORDERED: BENZOCAINE SPRAY 1 CAN MUCOUS MEM ONE ×2 (07:25→07:30)
[2019-04-20] MEDS ORDERED: DIPHENHYDRAMINE PO PRN (07:52)
[2019-04-20] MEDS ORDERED: ACETAMINOPHEN PO PRN (07:52)
[2019-04-20 07:59] VITALS: TEMP 98
[2019-04-20 08:03] VITALS: RESP 16
--- NOTE | 2019-04-20 08:33 | CE ---
CARDIAC ELECTROPHYSIOLOGY REPORT CARDIOVERSION PROCEDURE NOTE: INDICATION: Atrial fibrillation. PROCEDURE: After explaining the procedure to the patient as well as the risks and the complications, after obtaining sedated state per anesthesia department, a synchronized biphasic cardioversion using 200 joules was performed with spiritism of normal sinus rhythm. There was no immediate complication. JULIETA / ANILA: [id number] /
--- NOTE | 2019-04-20 08:33 | ECHOT ---
TRANSESOPHAGEAL ECHOCARDIOGRAM INDICATION: Evaluation of left atrial appendage. PROCEDURE: After explaining the procedure to the patient, its risks and the complications, blood pressure, heart rate, O2 saturation was monitored. The throat was sprayed with Cetacaine. She received sedation per anesthesia department. The probe was introduced esophagus without difficulty. Images were obtained. Following that, the probe was removed. There was no immediate complication. FINDINGS: Biatrial enlargement was noted. The left atrial size is dilated. Left ventricular size is normal. There is mild global hypokinesis. Ejection fraction is estimated at 50%. The aortic valve is a tricuspid valve with moderate fibrocalcific changes with preserved opening. Mitral valve annuloplasty was noted. Tricuspid valve is normal. Pulmonic valve is normal. Descending thoracic aorta appears to be normal. Contrast bubble study revealed no shunting across the interatrial septum. No pericardial effusion was noted. Doppler pulse wave and color Doppler obtained revealed moderate mitral with mild aortic and mitral regurgitation. There was no shunting by color Doppler study. CONCLUSION: 1. Biatrial enlargement with normal appearance of left atrial appendage. 2. Normal left ventricular size with mild global hypokinesis. 3. Mitral valve annuloplasty with mild mitral regurgitation. 4. Moderate tricuspid regurgitation. 5. Mild aortic regurgitation with aortic sclerosis with no significant stenosis. MMODL / IJN: [id number] /
[2019-04-20] MEDS ORDERED: TRIAMTERENE-HCTZ 37.5-25MG 1 EACH CAP PO SCH (09:00)
[2019-04-20] MEDS ORDERED: FLECAINIDE 50 MG TAB PO SCH (09:00)
[2019-04-20] MEDS ORDERED: NON FORMULARY DRUG (Potassium Chloride [Potassium Chloride] 10 MEQ) PO SCH (09:00)
[2019-04-20] MEDS ORDERED: GABAPENTIN 100 MG CAP PO SCH (09:00)
[2019-04-20] MEDS ORDERED: PARoxetine 20 MG TAB PO SCH (09:00)
[2019-04-20] MEDS ORDERED: METOPROLOL TARTRATE 50 MG TAB PO SCH (09:00)
[2019-04-20 09:41] VITALS: BP 115/78; PULSE 64
[2019-04-20] MEDS ORDERED: RIVAROXABAN 20 MG TAB PO SCH (21:00)
[2019-04-20] MEDS ORDERED: ATORVASTATIN 40 MG TAB PO SCH (21:00)
== END 2019-04-20 09:43 | disposition home or self-care (01) ==
LOC: CATHCVL 06:17
PROVIDERS: ATTEND Internal Medicine Interventional Cardiology
DX: I48.19 Other persistent atrial fibrillation (principal); I08.3 Combined rheumatic disorders of mitral, aortic and tricuspid valves; I10 Essential (primary) hypertension; E78.2 Mixed hyperlipidemia; J98.4 Other disorders of lung; G47.33 Obstructive sleep apnea (adult) (pediatric); I44.2 Atrioventricular block, complete; F17.210 Nicotine dependence, cigarettes, uncomplicated; Z79.01 Long term (current) use of anticoagulants; Z79.899 Other long term (current) drug therapy; Z98.890 Other specified postprocedural states; Z95.0 Presence of cardiac pacemaker; Z88.0 Allergy status to penicillin; Z91.048 Other nonmedicinal substance allergy status; Z86.73 Personal history of transient ischemic attack (TIA), and cerebral infarction without residual deficits; Z82.49 Family history of ischemic heart disease and other diseases of the circulatory system
CPT/HCPCS: 93312; 93320; 93325; 92960; J2001; J2704

== ENCOUNTER → 2019-05-21 | Outpatient (CLI) | payer MEDICARE ==
--- NOTE | 2019-05-21 20:19 | PN ---
PROGRESS NOTE DATE OF SERVICE: 05/21/2019 This patient is a 68-year-old lady who has [facility] of obstructive sleep apnea-hypopnea syndrome. The patient had a polysomnogram and CPAP titration at the end of 2018. Sleep study showed severe obstructive sleep apnea-hypopnea syndrome. Patient is able to use her CPAP equipment every night for the whole night. She sleeps better with the machine and feels better during the day. [place] Sleepiness Scale today is 3, which is normal. I checked her CPAP unit. Pressure is 11 cm of water. Usage is 28/30 nights for the last month, and 23/30 nights for more than 4 hours, with average usage 5.6 hours per night. Leak is 16 L/minute, which is acceptable. Apnea-hypopnea index is 1.7, which is perfect. PRESENT MEDICATIONS: Atorvastatin, metoprolol, gabapentin, Xarelto, triamterene hydrochlorothiazide, flecainide, potassium supplement. PHYSICAL EXAMINATION: GENERAL: A pleasant patient in no distress. VITAL SIGNS: BP 96/65, HR 62, RR 16, weight 226.8, temperature 98.3, oxygen saturation at room air 92%. HEENT: PERRLA, EOMI. Evaluation of oropharynx shows tongue protrudes midline. Low position of soft palate. Mallampati III. NECK: Supple, no JVD. Thyroid is not palpable. LUNGS: Clear to percussion and to auscultation. Good air exchange. No wheezing or rhonchi. HEART: S1, S2 regular. Systolic murmur on the part of the heart. ABDOMEN: Slightly obese. EXTREMITIES: No clubbing or cyanosis. FOCUSING MACHINE OPERATOR: Awake, alert, and oriented X3. Cranial nerves 2 to 7 intact. There is no fasciculation or atrophy. noted. No focal deficits observed. IMPRESSION: 1. Severe obstructive sleep apnea-hypopnea syndrome. Apnea-hypopnea index 36.2 with oxygen desaturation to 81.6%, on full control with CPAP at 11 cm of water. Patient demonstrated great compliance with treatment, benefitting from treatment. 2. Obesity. 3. Hypertension. 4. Hyperlipidemia. 5. History of stroke in 2014. 6. History of transient ischemic attack in 2017. 7. Status post mitral valve repair in 2014. 8. Status post permanent pacemaker insertion in 2015. 9. Status post total hysterectomy. 10.Status post lap band surgery. 11.History of depression. PLAN: 1. Patient will continue to use CPAP equipment every night for the whole night. 2. Watching and losing weight. 3. Sleep hygiene with regular time in bed for at least 7-1/2 to 8 hours. 4. No driving if feeling any sleepiness. 5. I will maintain all necessary prescriptions for CPAP supplies, including nasal pillow mask, Dixon and Paykel Brevida, heated tube, filters. Thank you very much for allowing me to participate in the management of your patient. Sincerely, Nabil Koo MD, PhD, FAASM Diplomat of [place] [employer] [place] [employer] Convention Manager of [facility] [place] MMODL / IJN: [id number] /
== END | disposition home or self-care (01) ==
LOC: SLEEP 13:07
PROVIDERS: ATTEND Internal Medicine
DX: G47.33 Obstructive sleep apnea (adult) (pediatric) (principal); E66.9 Obesity, unspecified; I10 Essential (primary) hypertension; E78.5 Hyperlipidemia, unspecified; Z86.73 Personal history of transient ischemic attack (TIA), and cerebral infarction without residual deficits; Z90.710 Acquired absence of both cervix and uterus; Z86.59 Personal history of other mental and behavioral disorders; Z95.0 Presence of cardiac pacemaker; Z98.890 Other specified postprocedural states; Z98.84 Bariatric surgery status; Z79.01 Long term (current) use of anticoagulants; Z79.899 Other long term (current) drug therapy

== ENCOUNTER 2019-09-29 11:01 | Day surgery (SDC) | payer MEDICARE ==
[2019-09-28 09:00] VITALS: BMI 41.1
[~2019-09-29 11:01] MED LIST changes: +LACTATED RINGERS 1,000 ML IV SCH; -SODIUM CHLORIDE 0.9% 1,000 ML IV SCH
[2019-09-29 11:37] VITALS: PULSE 60; RESP 16; TEMP 99
[2019-09-29] MEDS ORDERED: LIDOCAINE 1% (10MG/ML) FOR IV START INTRADERMA ONE (11:51)
[2019-09-29] MEDS ORDERED: PROPOFOL 10 MG/ML 20 ML VIAL IV ONE (12:07)
[2019-09-29] MEDS ORDERED: LIDOCAINE 1% INJ 10MG/ML (20 ML MDV) ONE (12:07)
--- NOTE | 2019-09-29 12:13 | P.GSHP ---
History of Present Illness H&P Date: 09/29/19 Chief Complaint: Melanotic stools, anemia, change in bowel habits Patient here today for upper and lower endoscopy. Recently found to the anemic with a hemoglobin in the 8 range. Patient admits to some dark almost black colored stools 3 weeks ago. No abdominal pain. Some constipation. Last colonoscopy over 10 years ago. She believes she had an upper endoscopy in the past but does not recall when. No dysphagia. Past Medical History Past Medical History: Atrial Fibrillation, Asthma, CVA/TIA, GERD/Reflux, Hearing Disorder / Deafness, Hyperlipidemia, Hypertension, Osteoarthritis (OA), Skin Disorder, Sleep Apnea/CPAP/BIPAP, Thyroid Disorder Additional Past Medical History / Comment(s): Stroke 2014, TIA 2016- occ "rt leg drags when tired", HX OF MULT RENAL CALCULUS, past hx. heart murmur, TINNITUS, eczema, BILAT HEARING AIDS History of Any Multi-Drug Resistant Organisms: None Reported Past Surgical History: Bariatric Surgery, Hysterectomy, Pacemaker, Tonsillectomy Additional Past Surgical History / Comment(s): 06/2014 mitral valve repair & growth removed from heart, LAP BAND, LAPAROSCOPY FOR ENDOMETRIOSIS, mult surgeries for KIDNEY STONES, TEEs, 11/28/2018 right ureteroscopy with lithotripsy and placement of right double-J catheter, cardioversion, COLONOSCOPY Past Anesthesia/Blood Transfusion Reactions: Previous Problems w/ Anesthesia Additional Past Anesthesia/Blood Transfusion Reaction / Comment(s): Woke up during Lithotripsy procedure once. Type of Cardiac Device: Permanent Pacemaker Device Placement Date:: October 2015 Smoking Status: Former smoker - Past Family History Brother(s) Family Medical History: Cancer Sister(s) Family Medical History: Cancer Mother Family Medical History: Cancer Additional Family Medical History / Comment(s): OVARIAN/UTERINE Father Family Medical History: Cancer Additional Family Medical History / Comment(s): BRAIN Medications and Allergies Home Medications Medication Instructions Recorded Confirmed Type Gabapentin [Neurontin] 100 mg PO BID 01/24/15 09/29/19 History Acetaminophen/Diphenhydramine 1 tab PO HS PRN 11/04/15 09/29/19 History [Tylenol PM Extra Strength] PARoxetine [Paxil] 20 mg PO DAILY 11/04/15 09/29/19 History Metoprolol Tartrate [Lopressor] 25 mg PO BID 12/02/18 09/29/19 History Atorvastatin [Lipitor] 20 mg PO HS 04/17/19 09/29/19 History Potassium Chloride 10 meq PO DAILY 04/17/19 09/29/19 History Rivaroxaban [Xarelto] 20 mg PO HS 04/17/19 09/29/19 History Triamterene-Hctz 37.5-25Mg 0.5 cap PO DAILY 04/17/19 09/29/19 History [Dyazide 37.5-25 Capsule] Flecainide [Tambocor] 50 mg PO Q12HR tab 04/20/19 09/29/19 Rx Allergies Allergy/AdvReac Type Severity Reaction Status Date / Time amoxicillin Allergy Rash/Hives Verified 09/29/19 11:32 Iodinated Contrast Media Allergy Rash/Hives Verified 09/29/19 11:32 [Iodinated Contrast Media - IV Dye] iodine Allergy Rash/Hives Verified 09/29/19 11:32 shellfish derived Allergy Rash/Hives Verified 09/29/19 11:32 Surgical - Exam Vital Signs Temp Pulse Resp BP Pulse Ox 99.0 F 60 16 139/67 98 09/29/19 11:23 09/29/19 11:23 09/29/19 11:23 09/29/19 11:23 09/29/19 11:23 Physical exam: General: Well-developed, well-nourished HEENT: Normocephalic, sclerae nonicteric Abdomen: Nontender, nondistended Extremities: No edema Neuro: Alert and oriented Assessment and Plan (1) Anemia Narrative/Plan: Will proceed with upper and lower endoscopy Current Visit: Yes Status: Acute Code(s): D64.9 - ANEMIA, UNSPECIFIED SNOMED Code(s): 777883179
--- NOTE | 2019-09-29 12:37 | P.PCN ---
Date of Procedure: 09/29/19 Procedure(s) Performed: PREOPERATIVE DIAGNOSIS: Anemia, GERD, change in bowel habits POSTOPERATIVE DIAGNOSIS: Gastritis with small ulcer, distal esophagitis, PROCEDURE: 1. EGD with biopsy 2. Colonoscopy ANESTHESIA: MAC SURGEON: Jani Barnett M.D. SPECIMENS: Gastric ulcer, distal esophagus ENDOSCOPIC PROCEDURE: The patient was on the endoscopy table in the left decubitus position. The Olympus gastroscope was inserted into the oropharynx and passed under direct visualization to the region of the third portion of the duodenum. From that point the scope was slowly withdrawn inspecting all surfaces carefully. There were no neoplastic inflammatory or polypoid lesions throughout the duodenum. The pylorus was widely patent. The stomach was carefully inspected. There was a small prepyloric ulceration present without evidence of recent or active bleeding. A biopsy of that area took place. Ret roflexion revealed a previous and plication. No evidence of erosion or prolapse was seen. A small amount of bleeding from the GE junction was noted on withdrawal of the scope. There was mild distal esophagitis. A biopsy of the distal esophagus took place. The remainder the esophagus appear normal. The patient was kept on the endoscopy table in the left decubitus position. The Olympus colonoscope was inserted into the anus and passed under direct visualization to the base of the cecum. The appendiceal orifice was visualized. From that point the scope was slowly withdrawn inspecting all surfaces carefully. There were no neoplastic inflammatory or polypoid lesions throughout the cecum, ascending, transverse, descending, sigmoid and rectum. There was mild scattered diverticulosis noted. The patient's prep was somewhat suboptimal. Smaller polyps may have been missed. No sources of anemia however were identified. Digital rectal examination was normal. The patient was taken to the recovery room in stable condition per anesthesia guidelines. RECOMMENDATIONS: Await biopsy results. Begin antiacid therapy. We'll discuss loosening the patient's lap band. Monitor anemia.
[2019-09-29 13:25] VITALS: BP 112/54
== END 2019-09-29 13:37 | disposition home or self-care (01) ==
LOC: ORWHC2ENDO 11:01
PROVIDERS: ATTEND Surgery
DX: K21.0 Gastro-esophageal reflux disease with esophagitis (principal); K29.50 Unspecified chronic gastritis without bleeding; K57.30 Diverticulosis of large intestine without perforation or abscess without bleeding; D50.9 Iron deficiency anemia, unspecified; K25.9 Gastric ulcer, unspecified as acute or chronic, without hemorrhage or perforation; J45.909 Unspecified asthma, uncomplicated; K22.8 Other specified diseases of esophagus; I10 Essential (primary) hypertension; I48.91 Unspecified atrial fibrillation; E78.5 Hyperlipidemia, unspecified; E07.9 Disorder of thyroid, unspecified; M19.90 Unspecified osteoarthritis, unspecified site; G47.33 Obstructive sleep apnea (adult) (pediatric); H91.90 Unspecified hearing loss, unspecified ear; Z87.891 Personal history of nicotine dependence; Z86.73 Personal history of transient ischemic attack (TIA), and cerebral infarction without residual deficits; Z87.442 Personal history of urinary calculi; Z98.84 Bariatric surgery status; Z90.710 Acquired absence of both cervix and uterus; Z90.89 Acquired absence of other organs; Z95.0 Presence of cardiac pacemaker; Z96.0 Presence of urogenital implants; Z98.890 Other specified postprocedural states; Z80.8 Family history of malignant neoplasm of other organs or systems; Z80.41 Family history of malignant neoplasm of ovary; Z79.01 Long term (current) use of anticoagulants; Z79.899 Other long term (current) drug therapy; Z91.041 Radiographic dye allergy status; Z88.0 Allergy status to penicillin; Z91.013 Allergy to seafood
CPT/HCPCS: 45378; 88305; 43239; J2001; J2704

== ENCOUNTER → 2019-11-23 | Outpatient (CLI) | payer MEDICARE ==
[2019-11-23 16:08] LABS: Anisocytosis Marked; Basophils % (A) 1 %; Eosinophils # (A) 0.1 k/uL (0-0.7); Eosinophils % (A) 1 %; HCT 40.6 % (34.0-46.0); Hypochromasia Marked; Lymphocytes # (A) 0.9 k/uL (1.0-4.8); Lymphocytes % (A) 11 %; MCH 25.4 pg (25.0-35.0); MCHC 28.7 g/dL (31.0-37.0); Macrocytosis Slight; Microcytosis Slight; Monocytes # (A) 0.5 k/uL (0-1.0); Monocytes % (A) 6 %; Neutrophils # (A) 6.6 k/uL (1.3-7.7); Neutrophils % (A) 79 %; Platelet Count 306 k/uL (150-450); WBC 8.4 k/uL (3.8-10.6)
[2019-11-23 16:17] LABS: HGB 11.7 gm/dL (11.4-16.0); MCV 88.4 fL (80.0-100.0)
[2019-11-23 16:26] LABS: Appearance,Urine Clear (Clear); Bacteria,Urine Rare /hpf; Bilirubin,Urine Negative (Negative); Blood,Urine Small (Negative); Color,Urine Yellow; Glucose,Urine (UA) Negative (Negative); Hyaline Casts,Urine 29 /lpf (0-2); Ketones,Urine 1+ (Negative); Leukocyte Esterase,Urine Negative (Negative); Mucus,Urine Rare /hpf; Nitrite,Urine Negative (Negative); PH, Urine 6.5 (5.0-8.0); Protein,Urine Trace (Negative); RBC,Urine 1 /hpf (0-5); Specific Gravity,Urine 1.013 (1.001-1.035); Squamous Epithelial Cell,Urine 4 /hpf (0-4); Urobilinogen,Urine <2.0 mg/dL (<2.0); WBC,Urine 2 /hpf (0-5)
[2019-11-23 16:49] LABS: Protein/Creatinine Ratio,Urine 0.17
[2019-11-24 02:16] LABS: Ferritin 102.1 ng/mL (10.0-291.0)
[2019-11-24 02:24] LABS: % Iron Saturation 10.59 (12.00-45.00); African American GFR (CKD) 40.5 (60.0-200.0); Albumin 4.7 g/dL (3.80-4.90); Albumin/Globulin Ratio 1.96 (1.60-3.17); Anion Gap 17.4 mmol/L (4.00-12.00); BUN/Creat Ratio 30.67 Ratio (12.00-20.00); Calcium 10.9 mg/dL (8.7-10.3); Carbon Dioxide 26.6 mmol/L (21.6-31.8); Globulin 2.4 g/dL (1.6-3.3); Magnesium 2.2 mg/dL (1.5-2.4); Non-African American GFR(CKD) 34.9 (60.0-200.0); Phosphorus 3.4 mg/dL (2.4-5.1); Potassium 3.4 mmol/L (3.5-5.5); Total Bilirubin 3.8 mg/dL (0.3-1.2); Total Protein 7.1 g/dL (6.2-8.2)
== END | disposition home or self-care (01) ==
LOC: LABWHC1 15:37
PROVIDERS: ATTEND Nurse Practitioner Family
DX: N17.9 Acute kidney failure, unspecified (principal)
CPT/HCPCS: 36415; 80053; 81001; 82570; 82728; 83540; 83550; 83735; 84100; 84156; 85025

== ENCOUNTER → 2019-11-23 | Outpatient (CLI) | payer MEDICARE ==
--- NOTE | 2019-11-23 14:54 | P.HPBAR ---
Bariatric H&P - History & Physicial H&P Date: 11/23/19 History & Physicial: Visit/CC: Patient initial contact: Initial weight: Initial weight in pounds: Height: Initial BMI: Last weight: Current weight: Current weight in pounds: Current BMI: Zachary body weight (based on NIH guidelines): Excess body weight loss: The patient is a 69 year-old F who presents for Bariatric Assessment. Patient resents today for lab band follow appeared to have been seen over years. She's had complaints of dysphagia and vomiting. She is requesting fluid removed for band. Past Medical History Past Medical History: Atrial Fibrillation, Asthma, CVA/TIA, GERD/Reflux, Hearing Disorder / Deafness, Hyperlipidemia, Hypertension, Osteoarthritis (OA), Skin Disorder, Sleep Apnea/CPAP/BIPAP, Thyroid Disorder Additional Past Medical History / Comment(s): Stroke 2014, TIA 2015- occ "rt leg drags when tired", HX OF MULT RENAL CALCULUS, past hx. heart murmur, TINNITUS, eczema, BILAT HEARING AIDS History of Any Multi-Drug Resistant Organisms: None Reported Past Surgical History: Bariatric Surgery, Hysterectomy, Pacemaker, Tonsillectomy Additional Past Surgical History / Comment(s): 06/2014 mitral valve repair & growth removed from heart, LAP BAND, LAPAROSCOPY FOR ENDOMETRIOSIS, mult surgeries for KIDNEY STONES, TEEs, 11/28/2018 right ureteroscopy with lithotripsy and placement of right double-J catheter, cardioversion, COLONOSCOPY Past Anesthesia/Blood Transfusion Reactions: Previous Problems w/ Anesthesia Additional Past Anesthesia/Blood Transfusion Reaction / Comm: Woke up during Lithotripsy procedure once. Type of Cardiac Device: Permanent Pacemaker Device Placement Date:: October 2015 Smoking Status: Former smoker - Past Family History Brother(s) Family Medical History: Cancer Sister(s) Family Medical History: Cancer Mother Family Medical History: Cancer Additional Family Medical History / Comment(s): OVARIAN/UTERINE Father Family Medical History: Cancer Additional Family Medical History / Comment(s): BRAIN Surgical - Exam - General well developed, well nourished, no distress - Eyes PERRL - ENT normal pinna - Neck no masses - Respiratory normal expansion - Cardiovascular Rhythm: regular - Abdomen Abdomen: soft, non tender Bariatric Assessment & Plan Plan: Patient LAP-BAND was adjusted. She had 5 20 mL removal LAP-BAND. She'll follow-up in 4 weeks. Bariatric Checklist Checklist: Plan: Checklist: EGD: 1. Hiatal hernia: 2. H. Pylori: HgbA1c: Vitamin D: Smoking: Former smoker Primary care physician referral: Psychiatry clearance: Cardiology clearance: Sleep study: Diet journal: VTE risk score: VTE risk level: Rehab needs at discharge:
[2019-11-23 16:17] VITALS: BP 103/64; PULSE 77; TEMP 98.3; BMI 35.8
== END | disposition home or self-care (01) ==
LOC: BARWHC3 14:31
PROVIDERS: ATTEND Surgery
DX: Z46.51 Encounter for fitting and adjustment of gastric lap band (principal); R13.10 Dysphagia, unspecified; Z98.84 Bariatric surgery status; Z90.710 Acquired absence of both cervix and uterus
CPT/HCPCS: 99212

== ENCOUNTER → 2019-12-03 | Day surgery (SDC) | payer MEDICARE ==
[2019-12-01 16:21] VITALS: BMI 35.4
[~2019-12-03] MED LIST changes: +ALPRAZolam 0.25 MG TAB PO PRN; +ALPRAZolam 0.5 MG TAB PO PRN; +ASPIRIN 325 MG TAB PO STA; +ATORVASTATIN 40 MG TAB PO SCH; +ATORVASTATIN 80 MG TAB PO STA; +BENZOCAINE SPRAY 1 CAN MUCOUS MEM ONE; +FLECAINIDE 50 MG TAB PO SCH; +GABAPENTIN 100 MG CAP PO SCH; +IOPAMIDOL-250 100ML BTL INTRAARTER ONE; -LACTATED RINGERS 1,000 ML IV SCH; +LIDOCAINE 1% INJ 10MG/ML (20 ML MDV) ONE; +LIDOCAINE 1% INJ 10MG/ML (20 ML MDV) SQ ONE; +MAGNESIUM OXIDE 400 MG TAB PO SCH; +MIDAZOLAM 2 MG/2 ML VIAL IVP ONE; +MONTELUKAST 10 MG TAB PO SCH; +NITROGLYCERIN SL TABS 0.4 MG TAB SUBLINGUAL PRN; +NON FORMULARY DRUG (Iron [Iron] 18 MG Tablet) PO SCH; +NON FORMULARY DRUG (Omeprazole 20 MG Capsule.Dr) PO SCH; +PARoxetine 20 MG TAB PO SCH; +POTASSIUM CHLORIDE ER 20 MEQ TAB.ER PO SCH; +RX INFO: IV CONTRAST WAS GIVEN 1 EACH MISC MISCELLANE PRN; +SODIUM CHLORIDE 0.9% 1,000 ML IV ONE; +SODIUM CHLORIDE 0.9% 1,000 ML IV SCH; +SODIUM CHLORIDE 0.9% 1,000 ML in EMPTY BAG 1 BAG IV ONE; +SPIRONOLACTONE 25 MG TAB PO SCH; +VERAPAMIL 2.5 MG/ML 2 ML AMP ONE; +fentaNYL (PF) 50 MCG/ML 2 ML AMP IVP ONE; +fentaNYL (PF) 50 MCG/ML 2 ML AMP ONE
[2019-12-03 07:04] VITALS: TEMP 97.8
[2019-12-03 08:34] LABS: O2 Sat Blood Gas 96.6 %
[2019-12-03 08:36] LABS: O2 Sat Blood Gas 65.7 %
[2019-12-03 08:38] LABS: O2 Sat Blood Gas 66.5 %
--- NOTE | 2019-12-03 09:20 | EST ---
EXERCISE STRESS INDICATION: Evaluation of mitral and aortic valve. PROCEDURE: After explaining the procedure to the patient, its risks and complication, blood pressure, heart rate, O2 saturation was monitored. The throat was sprayed with Cetacaine. She received 3 mg intravenous Versed, 50 mcg intravenous fentanyl. The probe was introduced into the esophagus without difficulties. Images were obtained. Following that, the probe was removed, there was no immediate complication. FINDINGS: Left atrial size is dilated. Left atrial appendage is normal. Left ventricular size and systolic function is normal. The aortic valve is a tricuspid valve with severe calcification and what appears to be fusion of the calcified planimetry, the valve area ranging between 0.8 and 1.1 cm2. The mitral valve revealed mild mitral annuloplasty with calcification of the leaflets. Tricuspid valve is normal, descending thoracic aorta appears to be normal. No pericardial effusion was noted. The wire was noted in the right ventricle. Doppler pulse wave and color Doppler obtained, revealed a mild aortic with moderate tricuspid regurgitation and mild aortic regurgitation. The estimated right ventricular systolic pressure is 41 mmHg, consistent with mild pulmonary hypertension. The mitral valve area was calculated at 2.3 cm2, but there was a mean gradient of 17 mmHg with a peak of 32 mmHg and there was no shunting by color Doppler study. CONCLUSION: 1. Dilated left atrium with normal appearance left atrial appendage. 2. Normal left ventricular size and systolic function. 3. Heavily calcified aortic valve by planimetry, valve area is calculated around 1 cm2. 4. Mitral annuloplasty with a mean gradient of 17 mmHg and a mild mitral regurgitation. 5. Mild aortic regurgitation. 6. Moderate tricuspid regurgitation with mild pulmonary hypertension. 7. No pericardial effusion. 8. No shunting across the interatrial septum. MMODL / IJN: [id number] /
[2019-12-03 09:56] VITALS: RESP 16
--- NOTE | 2019-12-03 12:16 | CC ---
CARDIAC CATHETERIZATION REPORT Mrs. Rivers is a 69-year-old female with known history of hypertension, hyperlipidemia, who has prior history of mitral valve repair and presented with symptoms of progressive dyspnea and peripheral edema. She was found to have evidence of aortic and tricuspid disease. In view of that, recommendation made regarding cardiac catheterization. The procedures, risks, and complications were discussed with the patient who is in full understanding and agreement. PROCEDURE: Patient was brought to nitriles lab technician in the fasting semi-sedated state after receiving fentanyl and Benadryl and achieving moderate conscious sedated state. Using Xylocaine anesthesia and Seldinger technique, a 6-Chadian sheath was introduced in the right femoral artery and an 8-Chadian sheath in the right femoral vein. Right heart catheterization was performed using [place]-John catheter, multiple pressure and samples were obtained. Cardiac output by thermodilution was calculated. Following that, selective right and left coronary angiography performed 6-Chadian, 4 bend right and left Renetta catheter. Multiple views were obtained. Following that, a 6-Chadian tight pigtail catheter in the left ventricle and pressures were obtained. Following that, catheter and sheath were removed. Hemostasis was obtained with deployment of an Angio- Seal in the right femoral artery and compression of the right femoral vein. There was no immediate complication. FINDINGS: HEMODYNAMICS: The pulmonary artery systolic pressure of 75 with a diastolic of 20 and a mean of 44 mmHg. Pulmonary capillary wedge pressure, A-wave of 18, V-wave of 20 with a mean of 18 mmHg. Right ventricular systolic pressure of 80 with an end-diastolic of 6. Right atrial A-wave of 7, V-wave of 7 with a mean of 4 mmHg. Left ventricular end- diastolic pressure of 12 mmHg. Left ventricular systolic pressure of 120 with an ascending aorta of 100 with a peak gradient of 20 mmHg. Cardiac output by thermodilution of 5.6 L/minute and by Heron 6.5 L/minute. Pulmonary saturation of 67%, A saturation 66%, femoral artery saturation 97% with an aortic valve area of 1.3-1.4 cm2. CORONARIES: LEFT MAIN: This is a short size vessel, bifurcating into left circumflex, left anterior descending artery. Left main coronary artery has no evidence of high-grade stenosis. LEFT ANTERIOR DESCENDING ARTERY: This is a large-sized vessel, reaching toward the apex with a wraparound apex segment. The left anterior descending artery as well as branches have no evidence of obstructive coronary artery disease next. LEFT CIRCUMFLEX: This is a nondominant vessel, giving rise to 2 obtuse marginal branches, the left circumflex as well as branches have no evidence of obstructive coronary artery disease. RIGHT CORONARY ARTERY: This is a large dominant vessel, bifurcating distally into PDA and posterolateral segment and branches. The right coronary artery as well as branches have no evidence of obstructive coronary artery disease. CONCLUSION: 1. Normal coronary arteries. 2. Moderate to severe pulmonary hypertension. 3. Moderate aortic stenosis. RECOMMENDATION: In view of finding anatomy, I recommend continue medical therapy and further evaluate her valvular disease to see if further intervention will be needed. Those findings and recommendation were discussed with the patient and her family and are in full understanding and agreement. DURATION OF SEDATION: 33 minutes. MMODL / IJN: [id number] /
[2019-12-03 14:14] VITALS: BP 113/56; PULSE 71
== END | disposition home or self-care (01) ==
LOC: CATHCVL 06:04
PROVIDERS: ATTEND Internal Medicine Interventional Cardiology
DX: I08.3 Combined rheumatic disorders of mitral, aortic and tricuspid valves (principal); I27.20 Pulmonary hypertension, unspecified; I48.19 Other persistent atrial fibrillation; I44.2 Atrioventricular block, complete; Z98.890 Other specified postprocedural states; E78.2 Mixed hyperlipidemia; I10 Essential (primary) hypertension; J45.909 Unspecified asthma, uncomplicated; Z98.84 Bariatric surgery status; Z90.710 Acquired absence of both cervix and uterus; Z87.442 Personal history of urinary calculi; Z86.73 Personal history of transient ischemic attack (TIA), and cerebral infarction without residual deficits; Z95.0 Presence of cardiac pacemaker; Z79.01 Long term (current) use of anticoagulants; Z79.51 Long term (current) use of inhaled steroids; Z79.899 Other long term (current) drug therapy
CPT/HCPCS: 93312; 93320; 93325; 93460; 85018; 82810; C1769 ×3; C1760; C1894 ×2; J2250; J2001; J3010; Q9966

== ENCOUNTER 2020-01-08 06:53 | Day surgery (SDC) | payer MEDICARE ==
[2020-01-07 11:48] VITALS: BMI 37.1
[~2020-01-08 06:53] MED LIST changes: -ALPRAZolam 0.25 MG TAB PO PRN; -ALPRAZolam 0.5 MG TAB PO PRN; -ASPIRIN 325 MG TAB PO STA; -ATORVASTATIN 40 MG TAB PO SCH; -ATORVASTATIN 80 MG TAB PO STA; -BENZOCAINE SPRAY 1 CAN MUCOUS MEM ONE; -FLECAINIDE 50 MG TAB PO SCH; -GABAPENTIN 100 MG CAP PO SCH; -IOPAMIDOL-250 100ML BTL INTRAARTER ONE; -LIDOCAINE 1% INJ 10MG/ML (20 ML MDV) ONE; -LIDOCAINE 1% INJ 10MG/ML (20 ML MDV) SQ ONE; -MAGNESIUM OXIDE 400 MG TAB PO SCH; -MIDAZOLAM 2 MG/2 ML VIAL IVP ONE; -MONTELUKAST 10 MG TAB PO SCH; -NITROGLYCERIN SL TABS 0.4 MG TAB SUBLINGUAL PRN; -NON FORMULARY DRUG (Iron [Iron] 18 MG Tablet) PO SCH; -NON FORMULARY DRUG (Omeprazole 20 MG Capsule.Dr) PO SCH; -PARoxetine 20 MG TAB PO SCH; -POTASSIUM CHLORIDE ER 20 MEQ TAB.ER PO SCH; -RX INFO: IV CONTRAST WAS GIVEN 1 EACH MISC MISCELLANE PRN; -SODIUM CHLORIDE 0.9% 1,000 ML IV ONE; -SODIUM CHLORIDE 0.9% 1,000 ML in EMPTY BAG 1 BAG IV ONE; -SPIRONOLACTONE 25 MG TAB PO SCH; -VERAPAMIL 2.5 MG/ML 2 ML AMP ONE; -fentaNYL (PF) 50 MCG/ML 2 ML AMP IVP ONE; -fentaNYL (PF) 50 MCG/ML 2 ML AMP ONE
[2020-01-08] MEDS ORDERED: SODIUM CHLORIDE 0.9% 500 ML 500 ML IV ONE (07:08)
[2020-01-08 07:09] VITALS: TEMP 98.4
[2020-01-08] MEDS ORDERED: LIDOCAINE 1% INJ 10MG/ML (20 ML MDV) ONE (07:52)
[2020-01-08] MEDS ORDERED: PROPOFOL 10 MG/ML 20 ML VIAL IV ONE (07:52)
[2020-01-08] MEDS ORDERED: MIDODRINE 5 MG TAB PO PRN (08:08)
[2020-01-08] MEDS ORDERED: SODIUM CHLORIDE 0.9% 1,000 ML IV SCH (08:15)
--- NOTE | 2020-01-08 08:15 | CE ---
CARDIAC ELECTROPHYSIOLOGY REPORT CARDIOVERSION PROCEDURE: INDICATION: Atrial fibrillation. PROCEDURE: After explaining the procedure, the patient's risks and complication and after sedation by the Anesthesia Department, a synchronized biphasic cardioversion using 200 joules was performed with caodaism of normal sinus rhythm. There was no immediate complication. JULIETA / ANILA: [id number] /
[2020-01-08] MEDS ORDERED: MAGNESIUM OXIDE 400 MG TAB PO SCH (09:00)
[2020-01-08] MEDS ORDERED: SPIRONOLACTONE 25 MG TAB PO SCH (09:00)
[2020-01-08] MEDS ORDERED: PARoxetine 20 MG TAB PO SCH (09:00)
[2020-01-08] MEDS ORDERED: FLECAINIDE 50 MG TAB PO SCH (09:00)
[2020-01-08] MEDS ORDERED: POTASSIUM CHLORIDE ER 20 MEQ TAB.ER PO SCH (09:00)
[2020-01-08] MEDS ORDERED: FUROSEMIDE 40 MG TAB PO SCH (09:00)
[2020-01-08] MEDS ORDERED: NON FORMULARY DRUG (Iron [Iron] 18 MG Tablet) PO SCH (09:00)
[2020-01-08] MEDS ORDERED: GABAPENTIN 100 MG CAP PO SCH (09:00)
[2020-01-08 09:56] VITALS: BP 107/58; PULSE 81; RESP 16
[2020-01-08] MEDS ORDERED: RIVAROXABAN 20 MG TAB PO SCH (21:00)
[2020-01-08] MEDS ORDERED: ATORVASTATIN 40 MG TAB PO SCH (21:00)
[2020-01-08] MEDS ORDERED: MONTELUKAST 10 MG TAB PO SCH (21:00)
[2020-01-09] MEDS ORDERED: NON FORMULARY DRUG (Omeprazole 20 MG Capsule.Dr) PO SCH (07:30)
== END 2020-01-08 09:57 | disposition home or self-care (01) ==
LOC: CATHCVL 06:53
PROVIDERS: ATTEND Internal Medicine Interventional Cardiology
DX: I48.19 Other persistent atrial fibrillation (principal); I35.0 Nonrheumatic aortic (valve) stenosis; E78.2 Mixed hyperlipidemia; I12.9 Hypertensive chronic kidney disease with stage 1 through stage 4 chronic kidney disease, or unspecified chronic kidney disease; N18.9 Chronic kidney disease, unspecified; E78.5 Hyperlipidemia, unspecified; G47.33 Obstructive sleep apnea (adult) (pediatric); I44.2 Atrioventricular block, complete; R60.0 Localized edema; K08.409 Partial loss of teeth, unspecified cause, unspecified class; J45.909 Unspecified asthma, uncomplicated; E07.9 Disorder of thyroid, unspecified; M19.90 Unspecified osteoarthritis, unspecified site; R26.89 Other abnormalities of gait and mobility; K21.9 Gastro-esophageal reflux disease without esophagitis; D64.9 Anemia, unspecified; H93.19 Tinnitus, unspecified ear; Z98.890 Other specified postprocedural states; Z95.0 Presence of cardiac pacemaker; Z79.01 Long term (current) use of anticoagulants; Z79.899 Other long term (current) drug therapy; Z86.79 Personal history of other diseases of the circulatory system; Z79.51 Long term (current) use of inhaled steroids; Z88.0 Allergy status to penicillin; Z91.048 Other nonmedicinal substance allergy status; Z86.73 Personal history of transient ischemic attack (TIA), and cerebral infarction without residual deficits; Z98.84 Bariatric surgery status; Z87.442 Personal history of urinary calculi; Z87.891 Personal history of nicotine dependence; Z91.013 Allergy to seafood; Z99.89 Dependence on other enabling machines and devices; Z90.710 Acquired absence of both cervix and uterus; Z91.89 Other specified personal risk factors, not elsewhere classified; Z82.49 Family history of ischemic heart disease and other diseases of the circulatory system
CPT/HCPCS: 92960; J2001; J2704